=== PATIENT | male | born 1970 | race Caucasian/White ===

== ENCOUNTER 2022-04-05 10:36 | Inpatient (IN) | payer OTHER ==
[2022-04-05 11:28] VITALS: BMI 29.3
[2022-04-05] MEDS ORDERED: BISMUTH SUBSALICYLATE 524 MG/30 ML PO PRN (12:26)
[2022-04-05] MEDS ORDERED: LORazepam 1 MG TABLET PO PRN (12:26)
[2022-04-05] MEDS ORDERED: LOPERAMIDE HCL 2 MG CAPSULE PO PRN (12:26)
[2022-04-05] MEDS ORDERED: ACETAMINOPHEN 325 MG TABLET (FP) PO PRN (12:26)
[2022-04-05] MEDS ORDERED: BENZOCAINE/MENTHOL (CHLORASEPTIC ) LOZENGE MM PRN (12:26)
[2022-04-05] MEDS ORDERED: DICYCLOMINE HCL 10 MG CAPSULE PO PRN (12:26)
[2022-04-05] MEDS ORDERED: MAG HYDROX/AL HYDROX/SIMETH 30 ML UNIT-DOSE CUP PO PRN (12:26)
[2022-04-05] MEDS ORDERED: LORazepam 2 MG TABLET PO ONE (12:26)
[2022-04-05] MEDS ORDERED: ONDANSETRON *ODT* 4 MG TABLET SL PRN (12:26)
[2022-04-05] MEDS ORDERED: MAGNESIUM HYDROX 2400MG/30ML ORAL SUSPENSION 30 ML CUP PO PRN (12:26)
[2022-04-05] MEDS ORDERED: MAGNESIUM CITRATE 300 ML BOTTLE PO PRN (12:26)
[2022-04-05] MEDS: PRENATAL VITAMINS W/ FOLIC ACID TABLET (FP) PO SCH (14:07)
[2022-04-05] MEDS: METHOCARBAMOL 500 MG TABLET PO PRN (14:07)
[2022-04-05] MEDS: ACETAMINOPHEN 325 MG TABLET (FP) PO PRN ×2 (15:35→22:12)
[2022-04-05] MEDS: LORazepam 2 MG TABLET PO SCH ×2 (17:32→22:13)
[2022-04-05] MEDS ORDERED: MELATONIN 5 MG TABLETS PO SCH (22:00)
[2022-04-05] MEDS: THIAMINE HCL 100 MG TABLET (FP) PO SCH (22:12)
[2022-04-05] MEDS: NICOTINE 10 MG CARTRIDGE (INHALER) IH PRN (22:12)
[2022-04-06] MEDS: LORazepam 2 MG TABLET PO SCH ×4 (05:33→22:16)
[2022-04-06] MEDS: IBUPROFEN 400 MG TABLET (FP) PO PRN ×2 (06:25→18:09)
[2022-04-06] MEDS: PRENATAL VITAMINS W/ FOLIC ACID TABLET (FP) PO SCH (10:14)
[2022-04-06] MEDS: METHOCARBAMOL 500 MG TABLET PO PRN (10:14)
[2022-04-06] MEDS: ACETAMINOPHEN 325 MG TABLET (FP) PO PRN (10:14)
[2022-04-06 11:07] LABS: ALBUMIN 3.6 g/dl (3.4-5.0); BLOOD UREA NITROGEN 13.1 mg/dL (7-18); CALCIUM 9.5 mg/dL (8.5-10.1); HEMATOCRIT 37.8 % (35.4-49); HEMOGLOBIN 12.9 GM/dL (11.7-16.9); MCH 32.1 pg (25.7-33.7); MCHC 34.2 g/dl (32.0-35.9); MEAN CELL VOLUME 93.9 fl (80-96); PLATELET COUNT 167 10^3/uL (134-434); RBC 4.03 M/mm3 (4.00-5.60); RDW 13.7 % (11.9-15.9); WHITE BLOOD COUNT 6.8 K/mm3 (4.0-10.0)
[2022-04-06 11:10] LABS: CREATININE 0.8 mg/dL (0.55-1.3)
[2022-04-06 11:11] LABS: BILIRUBIN,TOTAL 1.1 mg/dL (0.2-1)
[2022-04-06 11:12] LABS: TOT PROT 6.5 g/dl (6.4-8.2)
[2022-04-06] MEDS ORDERED: POTASSIUM CHLORIDE TABS 20 MEQ TABLET.ER (FP) PO ONE (16:03)
[2022-04-06] MEDS: NICOTINE POLACRILEX 4 MG GUM BUC PRN ×2 (19:57→22:19)
[2022-04-06] MEDS ORDERED: traZODone HCL 50 MG TABLET (FP) PO SCH (22:00)
[2022-04-06] MEDS: traZODone HCL 100 MG TABLET (FP) PO SCH (22:16)
[2022-04-06] MEDS: THIAMINE HCL 100 MG TABLET (FP) PO SCH (22:16)
[2022-04-07] MEDS: METHOCARBAMOL 500 MG TABLET PO PRN ×2 (05:14→17:47)
[2022-04-07] MEDS: IBUPROFEN 400 MG TABLET (FP) PO PRN ×2 (05:14→14:03)
[2022-04-07] MEDS: LORazepam 1 MG TABLET PO SCH ×4 (05:14→22:07)
[2022-04-07] MEDS: NICOTINE 10 MG CARTRIDGE (INHALER) IH PRN (06:37)
[2022-04-07] MEDS ORDERED: VORTIOXETINE PO SCH (10:00)
[2022-04-07] MEDS: PRENATAL VITAMINS W/ FOLIC ACID TABLET (FP) PO SCH (10:16)
[2022-04-07 11:55] LABS: BILIRUBIN,TOTAL 0.6 mg/dL (0.2-1)
[2022-04-07 16:08] LABS: SARS-CoV-2 NAA Not Detected (Not Detected)
[2022-04-07] MEDS: THIAMINE HCL 100 MG TABLET (FP) PO SCH (22:07)
[2022-04-07] MEDS: traZODone HCL 100 MG TABLET (FP) PO SCH (22:07)
[2022-04-08] MEDS ORDERED: LORazepam 0.5 MG TABLET PO PRN
[2022-04-08] MEDS: METHOCARBAMOL 500 MG TABLET PO PRN ×2 (02:33→18:35)
[2022-04-08] MEDS: NICOTINE POLACRILEX 4 MG GUM BUC PRN (03:56)
[2022-04-08] MEDS: IBUPROFEN 400 MG TABLET (FP) PO PRN ×3 (04:48→22:24)
[2022-04-08] MEDS: LORazepam 0.5 MG TABLET PO SCH ×4 (04:49→22:27)
[2022-04-08] MEDS: PRENATAL VITAMINS W/ FOLIC ACID TABLET (FP) PO SCH (10:34)
[2022-04-08] MEDS: NICOTINE 10 MG CARTRIDGE (INHALER) IH PRN ×2 (17:41→22:21)
[2022-04-08] MEDS: ACETAMINOPHEN 325 MG TABLET (FP) PO PRN (18:37)
[2022-04-08] MEDS: THIAMINE HCL 100 MG TABLET (FP) PO SCH (22:25)
[2022-04-08] MEDS: traZODone HCL 100 MG TABLET (FP) PO SCH (22:25)
[2022-04-09] MEDS: METHOCARBAMOL 500 MG TABLET PO PRN (01:54)
[2022-04-09] MEDS: NICOTINE POLACRILEX 4 MG GUM BUC PRN (01:57)
[2022-04-09] MEDS ORDERED: LORazepam 0.5 MG TABLET PO ONE (05:00)
[2022-04-09] MEDS: IBUPROFEN 400 MG TABLET (FP) PO PRN (05:28)
[2022-04-09 08:48] VITALS: BP 119/77; PULSE 72; TEMP 97.3
[2022-04-09] MEDS: PRENATAL VITAMINS W/ FOLIC ACID TABLET (FP) PO SCH (09:19)
== END 2022-04-09 09:25 | disposition home or self-care (01) | DRG 775 ==
LOC: YASAS 10:36 → Y3N 13:20
PROVIDERS: ADMIT Allergy & Immunology; ATTEND Surgery
PROC: HZ2ZZZZ Detoxification Services for Substance Abuse Treatment (ICD-10-PCS; principal; 2022-04-05)
DX: F10.230 Alcohol dependence with withdrawal, uncomplicated (principal); F10.280 Alcohol dependence with alcohol-induced anxiety disorder; F10.24 Alcohol dependence with alcohol-induced mood disorder; F41.9 Anxiety disorder, unspecified; F32.A Depression, unspecified; F17.210 Nicotine dependence, cigarettes, uncomplicated; E87.6 Hypokalemia; E80.6 Other disorders of bilirubin metabolism; R74.01 Elevation of levels of liver transaminase levels; Z96.643 Presence of artificial hip joint, bilateral; Z86.69 Personal history of other diseases of the nervous system and sense organs
CPT/HCPCS: 36415; 80053; 82247; 84132; 84450; 84460; 85027; 86780; 87811; 93005; 93010; C9803-CS; U0003; U0005